=== PATIENT | male | born 1955 | race Hispanic/Latino ===

== ENCOUNTER 2020-09-04 15:17 | Inpatient (IN) | payer MEDICARE ==
[~2020-09-04] VITALS: Ht 177.8 cm; Wt 88.7 kg
[2020-09-04] MEDS ORDERED: SODIUM CHLORIDE 0.9% 1000ML 1,000 ML IV SCH (15:45)
[2020-09-04] MEDS ORDERED: CEFTRIAXONE SOD 1 GM/50 ML BAG IV ONE (15:45)
[2020-09-04] MEDS ORDERED: ONDANSETRON HCL INJ 2MG/ML 2ML 2 MG/ML VIAL IV ONE (15:57)
[2020-09-04] MEDS ORDERED: IBUPROFEN 600 MG TAB PO STA (15:59)
[2020-09-04] MEDS ORDERED: CEFTRIAXONE SOD 1 GM in SODIUM CHLORIDE 0.9% 50ML 50 ML IV ONE (16:00)
[2020-09-04] MEDS ORDERED: ONDANSETRON HCL INJ 2MG/ML 2ML 2 MG/ML VIAL ONE (16:06)
[2020-09-04] MEDS ORDERED: CEFTRIAXONE SOD 1 GM 50 ML IV ONE (16:06)
[2020-09-04] MEDS ORDERED: SODIUM CHLORIDE 0.9% 1000ML 1,000 ML ONE ×3 (16:06→19:23)
[2020-09-04] MEDS ORDERED: IBUPROFEN 400 MG TAB ONE (16:09)
[2020-09-04] MEDS ORDERED: IBUPROFEN 400 MG TAB PO ONE (16:15)
[2020-09-04] MEDS ORDERED: SODIUM CHLORIDE 0.9% 1000ML 1,000 ML IV STA (16:52)
[2020-09-04] MEDS ORDERED: SODIUM CHLORIDE 0.9% 1000ML 1,000 ML IV ONE (18:30)
[2020-09-04] MEDS ORDERED: ONDANSETRON HCL INJ 2MG/ML 2ML 2 MG/ML VIAL IV PRN (18:30)
[2020-09-04] MEDS ORDERED: LEVOFLOXACIN 750MG/D5W 150ML 150 ML IV ONE ×2 (19:45→20:23)
[2020-09-04 20:00] VITALS: BP 139/83
[2020-09-04] MEDS: SODIUM CHLORIDE 0.9% 1000ML 1,000 ML IV SCH ×2 (20:56→21:41)
[2020-09-04 21:00] VITALS: BP 115/76
[2020-09-04 22:00] VITALS: BP 144/92
[2020-09-04 23:00] VITALS: BP 133/75
[2020-09-05] VITALS (19 sets, daily range): BP systolic 93–149; BP diastolic 54–91
[2020-09-05] MEDS: SODIUM CHLORIDE 0.9% 1000ML 1,000 ML IV SCH ×2 (05:20→17:36)
[2020-09-05] MEDS: ACETAMINOPHEN 325 MG TAB PO PRN ×2 (07:41→14:06)
[2020-09-05] MEDS ORDERED: CEFTRIAXONE SOD 1 GM/50 ML BAG IV SCH ×2 (09:15→09:45)
[2020-09-05 09:19] LABS: BASOPHILS % 0.3 % (0.0-1.0); HEMATOCRIT 43.8 % (38.2-49.6); HEMOGLOBIN 15.3 g/dL (14.0-18.0); LYMPHOCYTES # (AUTO) 0.8 (1.0-3.2); LYMPHOCYTES % 5.3 % (18.0-39.1); MEAN CORPUSCULAR HEMOGLOBIN 30.9 pg (28-32); MEAN CORPUSCULAR HGB CONC 34.9 g/dL (31-35); MEAN CORPUSCULAR VOLUME 88.5 fL (81-99); MONOCYTES % 6.4 % (4.4-11.3); NEUTROPHILS # (AUTO) 13.8 (2.1-6.9); NEUTROPHILS % 87.4 % (38.7-80.0); PLATELET COUNT 116 x10e3/uL (140-360); RED BLOOD COUNT 4.95 x10e6/uL (4.3-5.7); RED CELL DISTRIBUTION WIDTH 12.7 % (11.7-14.4)
[2020-09-05 09:55] LABS: ANION GAP 15.6 mmol/L (8-16); BLOOD UREA NITROGEN 9 mg/dL (7-26); BUN/CREATININE RATIO 11 (6-25); CALCIUM 8.1 mg/dL (8.4-10.2); CARBON DIOXIDE 21 mmol/L (22-29); CHLORIDE 105 mmol/L (98-107); CREATININE, SERUM 0.85 mg/dL (0.72-1.25); EST GLOMERULAR FILTRATION RATE > 60 ML/MIN (60-); GLUCOSE 142 mg/dL (74-118); POTASSIUM 3.6 mmol/L (3.5-5.1); SODIUM 138 mmol/L (136-145)
[2020-09-05] MEDS ORDERED: CEFTRIAXONE SOD 1 GM in SODIUM CHLORIDE 0.9% 50ML 50 ML IV SCH ×2 (10:00)
[2020-09-05] MEDS: MEROPENEM 1GM 100 ML IV SCH ×2 (15:04→21:17)
[2020-09-05] MEDS ORDERED: POTASSIUM CHLORIDE 20 MEQ TAB CR PO ONE (16:45)
[2020-09-06] VITALS (13 sets, daily range): BP systolic 98–129; BP diastolic 62–89
[2020-09-06] MEDS: ACETAMINOPHEN 325 MG TAB PO PRN ×2 (04:41→14:50)
[2020-09-06 04:56] LABS: BASOPHILS % 0.3 % (0.0-1.0); EOSINOPHILS # (AUTO) 0.1 (0.0-0.4); EOSINOPHILS % 0.7 % (0.0-6.0); HEMATOCRIT 42.7 % (38.2-49.6); HEMOGLOBIN 14.9 g/dL (14.0-18.0); LYMPHOCYTES # (AUTO) 0.9 (1.0-3.2); LYMPHOCYTES % 7.3 % (18.0-39.1); MEAN CORPUSCULAR HEMOGLOBIN 31.2 pg (28-32); MEAN CORPUSCULAR HGB CONC 34.9 g/dL (31-35); MEAN CORPUSCULAR VOLUME 89.5 fL (81-99); MONOCYTES # (AUTO) 0.8 (0.2-0.8); NEUTROPHILS # (AUTO) 10.1 (2.1-6.9); NEUTROPHILS % 83.9 % (38.7-80.0); PLATELET COUNT 96 x10e3/uL (140-360); RED BLOOD COUNT 4.77 x10e6/uL (4.3-5.7); RED CELL DISTRIBUTION WIDTH 12.7 % (11.7-14.4)
[2020-09-06 05:15] LABS: ALANINE AMINOTRANSFERASE 18 IU/L (0-55); ALBUMIN 2.6 g/dL (3.5-5.0); ALBUMIN/GLOBULIN RATIO 0.8 (0.8-2.0); ALKALINE PHOSPHATASE 57 IU/L (40-150); ANION GAP 10.8 mmol/L (8-16); BLOOD UREA NITROGEN 9 mg/dL (7-26); BUN/CREATININE RATIO 12 (6-25); CALCIUM 8.4 mg/dL (8.4-10.2); CARBON DIOXIDE 23 mmol/L (22-29); CHLORIDE 107 mmol/L (98-107); CHOL/HDL RATIO 4.7 (3.9-4.7); CHOLESTEROL 140 MD/DL (0-199); CREATININE, SERUM 0.78 mg/dL (0.72-1.25); EST GLOMERULAR FILTRATION RATE > 60 ML/MIN (60-); GLUCOSE 114 mg/dL (74-118); HDL CHOLESTEROL 30 MG/DL (40-60); LDL CHOLESTEROL 78 MG/DL (60-130); POTASSIUM 3.8 mmol/L (3.5-5.1); SODIUM 137 mmol/L (136-145); TRIGLYCERIDES 162 MG/DL (0-149)
[2020-09-06] MEDS: MEROPENEM 1GM 100 ML IV SCH (05:24)
[2020-09-06 05:42] LABS: THYROID STIMULATING HORMONE 1.177 uIU/mL (0.350-4.940)
[2020-09-06] MEDS: SODIUM CHLORIDE 0.9% 1000ML 1,000 ML IV SCH ×2 (14:50→21:37)
[2020-09-06] MEDS: CEFAZOLIN SOD 1 GM/NS 50ML 50 ML IV SCH ×2 (14:50→21:37)
[2020-09-07] VITALS (7 sets, daily range): BP systolic 99–136; BP diastolic 69–93
[2020-09-07] MEDS: CEFAZOLIN SOD 1 GM/NS 50ML 50 ML IV SCH ×3 (06:00→22:00)
[2020-09-07] MEDS: METOPROLOL TARTRATE 25 MG TAB PO SCH ×2 (10:19→21:00)
[2020-09-07] MEDS: SODIUM CHLORIDE 0.9% 1000ML 1,000 ML IV SCH (13:41)
[2020-09-07] MEDS: ACETAMINOPHEN 325 MG TAB PO PRN (14:58)
[2020-09-08 01:10] VITALS: BP 122/83
[2020-09-08 05:09] VITALS: BP 100/64
[2020-09-08] MEDS: CEFAZOLIN SOD 1 GM/NS 50ML 50 ML IV SCH (05:55)
[2020-09-08 06:02] LABS: BASOPHILS % 0.8 % (0.0-1.0); EOSINOPHILS # (AUTO) 0.1 (0.0-0.4); EOSINOPHILS % 1.5 % (0.0-6.0); HEMOGLOBIN 15.9 g/dL (14.0-18.0); LYMPHOCYTES % 24.8 % (18.0-39.1); MEAN CORPUSCULAR HEMOGLOBIN 29.9 pg (28-32); MEAN CORPUSCULAR HGB CONC 34.6 g/dL (31-35); MEAN CORPUSCULAR VOLUME 86.6 fL (81-99); MONOCYTES # (AUTO) 0.5 (0.2-0.8); MONOCYTES % 13.3 % (4.4-11.3); NEUTROPHILS # (AUTO) 2.3 (2.1-6.9); NEUTROPHILS % 58.3 % (38.7-80.0); PLATELET COUNT 111 x10e3/uL (140-360); RED BLOOD COUNT 5.31 x10e6/uL (4.3-5.7); RED CELL DISTRIBUTION WIDTH 12.3 % (11.7-14.4)
[2020-09-08 06:31] LABS: ANION GAP 13.5 mmol/L (8-16); BLOOD UREA NITROGEN 12 mg/dL (7-26); BUN/CREATININE RATIO 15 (6-25); CALCIUM 8.4 mg/dL (8.4-10.2); CARBON DIOXIDE 22 mmol/L (22-29); CHLORIDE 106 mmol/L (98-107); CREATININE, SERUM 0.78 mg/dL (0.72-1.25); EST GLOMERULAR FILTRATION RATE > 60 ML/MIN (60-); GLUCOSE 111 mg/dL (74-118); POTASSIUM 3.5 mmol/L (3.5-5.1); SODIUM 138 mmol/L (136-145)
[2020-09-08 07:49] VITALS: BP 108/69
[2020-09-08] MEDS: METOPROLOL TARTRATE 25 MG TAB PO SCH (07:52)
[2020-09-08 08:50] VITALS: BP 108/69
[2020-09-08 11:18] VITALS: BP 95/79
[2020-09-08] MEDS ORDERED: CEFUROXIME500 MG PO (12:26)
== END 2020-09-08 13:02 | disposition home or self-care (01) | DRG 871 ==
LOC: FSED 15:42 → ERHOLD 18:30 → ICU 20:43 → MED/SURG3 09-06 22:15
PROVIDERS: ADMIT Internal Medicine; ATTEND Internal Medicine
PROC: 02HV33Z Insertion of Infusion Device into Superior Vena Cava, Percutaneous Approach (ICD-10-PCS; principal; 2020-09-04)
DX: A41.9 Sepsis, unspecified organism (principal); R65.21 Severe sepsis with septic shock; N39.0 Urinary tract infection, site not specified; N11.1 Chronic obstructive pyelonephritis; E66.9 Obesity, unspecified; Z68.28 Body mass index [BMI] 28.0-28.9, adult; Z87.891 Personal history of nicotine dependence; E86.0 Dehydration; Z20.822 Contact with and (suspected) exposure to COVID-19; E83.51 Hypocalcemia; D69.6 Thrombocytopenia, unspecified; N40.0 Benign prostatic hyperplasia without lower urinary tract symptoms; N30.90 Cystitis, unspecified without hematuria; I49.1 Atrial premature depolarization
CPT/HCPCS: 36415; 36569; 71045; 74176; 80048; 80053; 80061; 80076; 81003; 84443; 85025; 87040; 87086; 87186; 93005; 93306; 96374; 97139; 99251; 99284; J0690; J0696; J2405; J7030; U0002